=== PATIENT | male | born 1985 | race African-American/Black ===

== ENCOUNTER → 2021-02-12 | Day surgery (SDC) | payer OTHER ==
[~2021-02-12] VITALS: Ht 180.3 cm; Wt 121.1 kg
[~2021-02-12] MED LIST: FISH1000 PO; MULT-90 PO; POTA10808 PO
== END | disposition home or self-care (01) ==
LOC: M SDC 11:05
PROVIDERS: ATTEND Orthopaedic Surgery
DX: Z53.29 Procedure and treatment not carried out because of patient's decision for other reasons (principal)